=== PATIENT | male | born 1990 | race Caucasian/White ===

== ENCOUNTER 2018-03-17 11:14 | Emergency (ER) | payer OTHER ==
--- NOTE | 2018-03-17 11:39 | UC ---
Skin Complaint HPI - HPI Summary HPI Summary: 27 yo male presents with cat bite to right hand sustained about 1 hour [employer]. He is a student at the [employer] and was handling a pt's cat when the cat scratched and bit his right hand. Pt immediately cleansed and irrigated the area. applied band-aids and came to . He says that he is up to date on his rabies shot and the cat is fully vaccinated. Denies numbness or tingling in the hand. - History of Current Complaint Chief Complaint: UCBiteInjury Time Seen by Provider: 03/17/18 11:39 Stated Complaint: CAT BITE Hx Obtained From: Patient Onset/Duration: Sudden Onset Onset Severity: Moderate Current Severity: Mild Pain Intensity: 2 Pain Scale Used: 0-10 Numeric - Allergy/Home Medications Allergies/Adverse Reactions: Allergies Allergy/AdvReac Type Severity Reaction Status Date / Time No Known Allergies Allergy Verified 03/17/18 11:37 Home Medications: Home Medications Magic Mouth Was-ANDRES/MAAL/LIDO* 1 ml .ROUTE DAILY 03/17/18 [History Confirmed 02/25] Review of Systems Constitutional: Negative Skin: Other - Cat bite right hand Respiratory: Negative Cardiovascular: Negative Neurovascular: Negative Musculoskeletal: Negative Neurological: Negative Psychological: Negative All Other Systems Reviewed And Are Negative: Yes PMH/Surg Hx/FS Hx/Imm Hx - Additional Past Medical History Additional PMH: None Previously Healthy: Yes - Surgical History Surgical History: None - Family History Known Family History: Positive: None - Social History Occupation: Student Lives: With Family Alcohol Use: Occasionally Substance Use Type: None Smoking Status (MU): Never Smoked Tobacco Physical Exam - Summary Physical Exam Summary: GENERAL: NAD. WDWN. No pain distress. SKIN: RIGHT HAND: dorsal PIP of the 3rd digit with mild puncture wound. Dorsum of hand with two 2-3mm superficial scratches. No active bleeding, erythema, or drainage. NECK: Supple. Nontender. No lymphadenopathy. CHEST: No accessory muscle use. Breathing comfortably and in no distress. CV: Pulses intact radial and ulnar. MSK: Right hand and all fingers: FROM. Strength 5/5 including manager psychology strength. No edema or obvious bony deformities. NEURO: Alert. Sensations intact hand and all fingers. PSYCH: Age appropriate behavior. Triage Information Reviewed: Yes Vital Signs: Initial Vital Signs Temp 98 F 03/17/18 11:34 Pulse 49 03/17/18 11:34 Resp 16 03/17/18 11:34 BP 126/70 03/17/18 11:34 Pulse Ox 100 03/17/18 11:34 Vital Signs Reviewed: Yes Course/Dx - Course Course Of Treatment: Cat bite right hand. Pt up to date with rabies vaccination given his line of work. Rx for Augmentin and advised to apply ice to the area to decrease pain and swelling - Diagnoses Provider Diagnoses: Cat bite right hand Discharge - Sign-Out/Discharge Documenting (check all that apply): Patient Departure - Discharge Plan Condition: Stable Disposition: HOME Prescriptions: Amoxicillin/Clavulanate TAB* [Augmentin TAB 875*] 875 mg PO BID #20 tab Patient Education Materials: Animal Bite (ED) Referrals: No Primary Care Phys,NOPCP [Primary Care Provider] - Additional Instructions: If you develop a fever, shortness of breath, chest pain, new or worsening symptoms - please call your PCP or go to the ED. - Billing Disposition and Condition Condition: STABLE Disposition: Home
== END 2018-03-17 12:12 | disposition home or self-care (01) ==
LOC: UCEAST 11:14
DX: S61.232A Puncture wound without foreign body of right middle finger without damage to nail, initial encounter (principal); S60.511A Abrasion of right hand, initial encounter; W55.01XA Bitten by cat, initial encounter; Y93.K9 Activity, other involving animal care; Y92.89 Other specified places as the place of occurrence of the external cause; Y99.8 Other external cause status
CPT/HCPCS: 99202; G0463